=== PATIENT | male | born 2005 | race Hispanic/Latino ===

== ENCOUNTER 2023-11-12 17:09 | Emergency (ER) | payer BC, OTHER ==
[2023-11-12] MEDS ORDERED: Ketorolac Tromethamine 30 MG (1 mL) VIAL ONE (19:08)
== END 2023-11-12 19:15 | disposition home or self-care (01) ==
LOC: CSHERS 17:09
DX: S43.402A Unspecified sprain of left shoulder joint, initial encounter (principal); X50.0XXA Overexertion from strenuous movement or load, initial encounter
CPT/HCPCS: 96372; J1885